=== PATIENT | male | born 1985 | race Caucasian/White ===

== ENCOUNTER 2019-12-19 21:35 | Emergency (ER) | payer OTHER ==
[~2019-12-19] VITALS: Ht 188 cm; Wt 108.9 kg
[2019-12-19] MEDS ORDERED: BACITRACIN OINT 30GM TOP STA (23:00)
[2019-12-19] MEDS ORDERED: ADACEL/BOOSTRIX VACCINE (DIPHTH/PERTUSS/ACELL/TETANUS)0.5ML SYR (90715) IM ONE (23:15)
[2019-12-19] MEDS ORDERED: ACETAMINOPHEN 325 MG TAB PO ONE (23:15)
[2019-12-20] MEDS ORDERED: AUGMENTIN 875 MG TAB PO ONE
[2019-12-20] MEDS ORDERED: AUGM875T28 PO (00:02)
[2019-12-20 00:31] VITALS: BP 146/90
--- NOTE | 2019-12-20 07:06 | REP ---
Clinical: Trauma. Dog bite. Technique: AP, lateral, bilateral oblique views left hand . Findings: Soft tissue swelling primarily surrounding the palmar and medial to the fifth metacarpal bone is appreciated with small amount of subcutaneous emphysema. No foreign body. The osseous structures and joint spaces are intact and normal. There is no evidence for acute fracture or dislocation. Impression: Swelling and small amounts of subcutaneous emphysema. No acute fracture or dislocation. Electronically Signed by Tyrone Fritz MD 12/20/2019 06:57 A
== END 2019-12-20 00:33 | disposition home or self-care (01) ==
LOC: M ED 21:35
DX: S71.131A Puncture wound without foreign body, right thigh, initial encounter (principal); S61.432A Puncture wound without foreign body of left hand, initial encounter; S70.311A Abrasion, right thigh, initial encounter; S60.512A Abrasion of left hand, initial encounter; W54.0XXA Bitten by dog, initial encounter; Y92.098 Other place in other non-institutional residence as the place of occurrence of the external cause; Z88.8 Allergy status to other drugs, medicaments and biological substances; Z23 Encounter for immunization